=== PATIENT | male | born 1990 | race Two or more races ===

== ENCOUNTER 2020-10-20 17:33 | Outpatient (REF) | payer SELFPAY | END 2020-10-20 17:34 | disposition home or self-care (01) | LOC: HO.LAB 17:33 | PROVIDERS: Visit Provider Internal Medicine | DX: Z20.828 Contact with and (suspected) exposure to other viral communicable diseases (principal) | CPT/HCPCS: C9803; U0003 ==

== ENCOUNTER → 2022-02-26 07:53 | Outpatient (BNVA) | payer SELFPAY | PROVIDERS: Visit Provider Internal Medicine | DX: Z02.79 Encounter for issue of other medical certificate (principal) ==

== ENCOUNTER 2023-02-03 16:22 | Emergency (ER) | payer OTHER, SELFPAY ==
--- NOTE | ~2023-02-03 | XR_ITS ---
EXAMINATION: XR KNEE, RIGHT CLINICAL INFORMATION: Right knee swelling COMPARISON: None available. TECHNIQUE: Four views of the right knee. FINDINGS: Bones and soft tissues are normal aside from the presence of a tiny knee joint effusion. No fracture. Alignment is anatomic. Joint spaces are well maintained. No abnormal soft tissue calcification. XR/XR knee RT 4V IMPRESSION: Small knee joint effusion.
--- NOTE | ~2023-02-03 | US_ITS ---
EXAMINATION: US VENOUS ULTRASOUND WITH DOPPLER LOWER EXTREMITY, RIGHT CLINICAL INFORMATION: Edema COMPARISON: None available. TECHNIQUE: Ultrasound of the deep veins is performed from the hip to the calf with compression sonography and color and pulse Doppler assessment. Spectral analysis with color-flow imaging is performed. FINDINGS: There is normal venous compression and respiratory variation and augmented flow. The visualized common femoral vein, superficial femoral vein, profunda femoral vein, popliteal vein, and the trifurcation region shows no evidence of deep venous thrombosis. There is a area of soft tissue swelling and fluid along the posterolateral aspect of the knee. If the patient's symptoms persist, followup ultrasound in 5 days 7 days might be of value to exclude proximal propagation from a non-visualized calf vein. US/US venous duplex LE RT IMPRESSION: No DVT demonstrated in the right lower extremity. Soft tissue swelling and fluid collection along the lateral aspect of the knee noted.
[2023-02-03 16:36] VITALS: BP 137/82; PULSE 79; RESP 20; TEMP 37.7; O2SAT 100; BMI 25.7
--- NOTE | 2023-02-03 16:37 | ED.LOWEXIN ---
HPI - Extremity Injury (Lower) General Chief Complaint: General Medical <JOSE FRANCISCO White - Last Filed: 02/03/23 16:39> Stated Complaint: right leg mass? <JOSE FRANCISCO White - Last Filed: 02/03/23 16:39> Time Seen by Provider: 02/03/23 17:50 <JOSE FRANCISCO White - Last Filed: 02/03/23 16:39> Source: patient and RN notes reviewed <John Garcia - Last Filed: 02/03/23 18:56> Mode of arrival: ambulatory <John Garcia - Last Filed: 02/03/23 18:56> Limitations: no limitations <John Garcia - Last Filed: 02/03/23 18:56> History of Present Illness HPI Narrative: 32-year-old male presents for evaluation right knee pain and swelling. Patient reports that his symptoms started 5 days ago. 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 Denies any falls or twisting injuries he states that the swelling seems to have been improving over the last 2 days. He states that he sees a ball on the outside of my right knee. he states that 3 days ago he had pain behind his right knee denies any history of blood clots <John Garcia - Last Filed: 02/03/23 18:56> Related Data Allergies/Adverse Reactions: Allergies Allergy/AdvReac Type Severity Reaction Status Date / Time No Known Allergies Allergy Unverified 07/20/20 18:45 <JOSE FRANCISCO White - Last Filed: 02/03/23 16:39> Review of Systems Cardiovascular: Cardiovascular: Denies chest pain and Denies dyspnea <John Garcia - Last Filed: 02/03/23 18:56> Respiratory: Respiratory: Denies dyspnea <John Garcia - Last Filed: 02/03/23 18:56> Musculoskeletal: Musculoskeletal: Reports arthralgias and Reports joint swelling <John Garcia - Last Filed: 02/03/23 18:56> PMFSH Social History Social History: Social History Advance Directives: No Advance Directives Information Provided: No <JOSE FRANCISCO White - Last Filed: 02/03/23 16:39> Physical Exam Vital Signs: Vital Signs: Last Vital Signs Temp 99.8 F 02/03/23 16:36 Pulse 79 02/03/23 16:36 Resp 20 02/03/23 16:36 BP 137/82 02/03/23 16:36 Pulse Ox 100 02/03/23 16:36 O2 Del Method Room Air 02/03/23 16:36 BMI result Body Mass Index 25.7 <JOSE FRANCISCO White - Last Filed: 02/03/23 16:39> Vital Signs: Last Vital Signs Temp 99.8 F 02/03/23 16:36 Pulse 79 02/03/23 16:36 Resp 20 02/03/23 16:36 BP 137/82 02/03/23 16:36 Pulse Ox 100 02/03/23 16:36 O2 Del Method Room Air 02/03/23 16:36 BMI result Body Mass Index 25.7 <John Garcia - Last Filed: 02/03/23 18:56> Const: General: healthy appearing, comfortable, no acute distress, alert and awake <John [place] - Last Filed: 02/03/23 18:56> Nutritional Appearance: well nourished <John O - Last Filed: 02/03/23 18:56> Orientation/consciousness: patient oriented x3 <Johnzuly Alyy - Last Filed: 02/03/23 18:56> HEENT: Head: Yes normocephalic and Yes atraumatic <Johnzuly Alyy - Last Filed: 02/03/23 18:56> Throat: Yes posterior oropharynx normal <Johnzuly Garcia - Last Filed: 02/03/23 18:56> Eyes: Eyelids: Yes eyelids normal <Johnzuly Alyy - Last Filed: 02/03/23 18:56> Conjunctivae: conjunctivae normal <Johnzuly Alyy - Last Filed: 02/03/23 18:56> Sclerae: sclerae normal <Johnzuly Alyy - Last Filed: 02/03/23 18:56> Corneas: corneas normal <Johnzuly Alyy - Last Filed: 02/03/23 18:56> Pupils: Equal, round and reactive pupils present <John O Last Filed: 02/03/23 18:56> EOM: EOMs intact bilaterally < Last Filed: 02/03/23 18:56> Neck: Neck: Yes full ROM < Last Filed: 02/03/23 18:56> Resp: Effort & Inspection: normal respiratory effort, able to speak in complete sentences, no audible wheezes and not labored < Last Filed: 02/03/23 18:56> Auscultation: clear to auscultation bilaterally < Last Filed: 02/03/23 18:56> Cardio: Rate: regular rate < Last Filed: 02/03/23 18:56> Rhythm: regular rhythm < Last Filed: 02/03/23 18:56> GI: Inspection: No distended < Last Filed: 02/03/23 18:56> Palpation (GI): Soft to palpation, not firm, nontender, no guarding and not rigid < Last Filed: 02/03/23 18:56> Auscultation: normoactive bowel sounds < Last Filed: 02/03/23 18:56> Skin: General skin exam: no rashes or lesions noted and elasticity normal < Last Filed: 02/03/23 18:56> Neuro: General: patient oriented x3 < Last Filed: 02/03/23 18:56> Cranial nerves: Yes CN's II-XII intact bilaterally, Yes Equal, round and reactive pupils present and Yes Bilaterally intact EOM present < Last Filed: 02/03/23 18:56> Cognition (Neuro): normal cognition < Last Filed: 02/03/23 18:56> Extrem: Other: patient has a small right knee joint effusion. No laxity with anterior drawer testing, negative valgus / varus strain. no calf tenderness, negative Homans sign <John Garcia - Last Filed: 02/03/23 18:56> Course Course Course Narrative: RME - 32 yo male presents to the ER for evaluation of non-traumtic right knee swelling. Feels like there is a bulge in front of his knee, worse with kneeling. Feels like the bones are grinding with full extension. No redness or warmth. FROM in triage. Plan - XR knee <JOSE FRANCISCO White - Last Filed: 02/03/23 16:39> Medical Decision Making Medical Decision Making MDM Narrative: 32-year-old male presents for evaluation of atraumatic right knee pain and swelling. He reports this started few days ago and has been improving with rest, ice, elevation and NSAIDs. X-ray shows a small joint effusion. 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 Will get an ultrasound to rule out DVT <John Garcia - Last Filed: 02/03/23 18:56> Differential Diagnosis joint effusion Knee sprain Knee bursitis DVT less likely Jules cyst Ruptured Jules cyst <John Garcia - Last Filed: 02/03/23 18:56> Discharge Plan Discharge Clinical Impression: Effusion of right knee <JOSE FRANCISCO White - Last Filed: 02/03/23 16:39> Patient Disposition: Home, Self-Care <JOSE FRANCISCO White - Last Filed: 02/03/23 16:39> Instructions: Swollen Knee Joint (ED) <JOSE FRANCISCO White - Last Filed: 02/03/23 16:39> Additional Instructions: your x-ray shows that you have fluid in your right knee. your ultrasound is negative for blood clots continue to rest, ice elevate compress the extremity follow-up with your primary doctor <JOSE FRANCISCO White - Last Filed: 02/03/23 16:39> Stand Alone Forms: Work/School Release <JOSE FRANCISCO White - Last Filed: 02/03/23 16:39>
== END 2023-02-03 19:13 | disposition home or self-care (01) ==
PROVIDERS: Emergency Provider Emergency Medicine
DX: M25.461 Effusion, right knee (principal); M25.561 Pain in right knee; R60.0 Localized edema
CPT/HCPCS: 73564; 93971; 99282; 99284

== ENCOUNTER 2023-02-10 15:47 | Outpatient (REF) | payer OTHER, SELFPAY ==
[2023-02-10 17:14] LABS: Hematocrit 47.7 % (42.0-52.0); Hemoglobin 15.8 g/dl (14.0-18.0); Mean Corpuscular HGB Conc 33.1 g/dl (31.0-36.0); Mean Corpuscular Hemoglobin 28.3 pg (27.0-33.0); Mean Corpuscular Volume 85.5 fL (80.0-98.0); Mean Platelet Volume 11.5 fL (9.4-12.4); Platelet Count 233 X10*3/uL (160-400); Red Blood Count 5.58 X10*6/uL (4.60-5.80); Red Cell Distribution Width 13.2 % (11.0-16.0); White Blood Count 7.9 X10*3/uL (4.8-10.8)
[2023-02-10 17:46] LABS: Alanine Aminotransferase 17 U/L (0-40); Albumin Level 4.4 g/dL (3.5-5.0); Alkaline Phosphatase 121 U/L (39-117); Anion Gap 13 (12-20); Aspartate Amino Transferase 26 U/L (5-37); Bilirubin Total 0.9 mg/dL (0.0-1.0); Blood Urea Nitrogen 11 mg/dL (9-16); Calcium 9.5 mg/dL (8.4-10.2); Carbon Dioxide 25 mmol/L (22-29); Chloride 108 mmol/L (96-108); Cholesterol 182 mg/dL; Estimated Glomerular Filt Rate > 60; Glucose Fasting 77 mg/dL (60-99); HDL Cholesterol 49 mg/dL; LDL Cholesterol Calculated 119 mg/dl; Potassium 4.2 mmol/L (3.3-5.1); Sodium 142 mmol/L (135-145); Total Protein 6.9 g/dL (6.5-8.0); Triglycerides 71 mg/dL
[2023-02-11 04:46] LABS: CT PCR NOT DETECTED (Not Detect.); NG PCR NOT DETECTED (Not Detect.)
[2023-02-12 04:26] LABS: Syphilis Screen Nonreactive (Nonreactive)
[2023-02-12 04:29] LABS: HIV AB/AG Nonreactive (Nonreactive)
== END 2023-02-10 15:48 | disposition home or self-care (01) ==
LOC: HO.LAB 15:47
PROVIDERS: PCP Physician Assistant; Visit Provider Physician Assistant
DX: Z11.4 Encounter for screening for human immunodeficiency virus [HIV] (principal); Z13.1 Encounter for screening for diabetes mellitus; Z13.220 Encounter for screening for lipoid disorders; Z20.2 Contact with and (suspected) exposure to infections with a predominantly sexual mode of transmission
CPT/HCPCS: 0353U; 80053; 80061; 85027; 86780; 87389

== ENCOUNTER 2023-03-06 10:58 | Outpatient (REF) | payer OTHER, SELFPAY ==
--- NOTE | ~2023-03-06 | XR_ITS ---
EXAMINATION: Knee x-ray CLINICAL INFORMATION: Pain COMPARISON: Previous right knee x-ray February 2023 TECHNIQUE: Standing AP view of both knees, sunrise view of the right knee and lateral and sunrise view of the left knee FINDINGS: Left: Bone alignment is normal. No fracture or dislocation. Joint spaces are normal. There is no joint effusion. Right: Bone alignment is normal. No fracture or dislocation. Normal joint spaces. XR/XR knee RT 1V IMPRESSION: Normal knees.
--- NOTE | ~2023-03-06 | XR_ITS ---
EXAMINATION: Knee x-ray CLINICAL INFORMATION: Pain COMPARISON: Previous right knee x-ray February 2023 TECHNIQUE: Standing AP view of both knees, sunrise view of the right knee and lateral and sunrise view of the left knee FINDINGS: Left: Bone alignment is normal. No fracture or dislocation. Joint spaces are normal. There is no joint effusion. Right: Bone alignment is normal. No fracture or dislocation. Normal joint spaces. XR/XR knee LT 2V IMPRESSION: Normal knees.
--- NOTE | ~2023-03-06 | XR_ITS ---
EXAMINATION: Knee x-ray CLINICAL INFORMATION: Pain COMPARISON: Previous right knee x-ray February 2023 TECHNIQUE: Standing AP view of both knees, sunrise view of the right knee and lateral and sunrise view of the left knee FINDINGS: Left: Bone alignment is normal. No fracture or dislocation. Joint spaces are normal. There is no joint effusion. Right: Bone alignment is normal. No fracture or dislocation. Normal joint spaces. XR/XR knee standing BI IMPRESSION: Normal knees.
== END 2023-03-06 10:59 | disposition home or self-care (01) ==
LOC: HO.HOSX 10:58
PROVIDERS: Visit Provider Physician Assistant
DX: M22.41 Chondromalacia patellae, right knee (principal); M22.42 Chondromalacia patellae, left knee
CPT/HCPCS: 73560; 73565

== ENCOUNTER 2023-05-07 17:00 | Outpatient (RCR) | payer OTHER, SELFPAY ==
--- NOTE | 2023-04-14 17:58 | MHC.PT.EP ---
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 Impairments include pain, decreased range of motion, decreased strength, impaired functional mobility, impaired postural awareness, and altered ambulation mechanics. pt is a excellent candidate for skilled PT due to age, potential remediation of impairments, typical disease/condition progression and prognosis, comorbidities, and motivation. pt would benefit from skilled PT intervention to provide a tailored strengthening and stretching exercise program, functional training, gait training, postural re-training, neuromuscular re-education, modalities as needed for pain, equipment safety demonstration. Frequency and Duration: The patient will be seen 2x/wk for 4 wks Short Term Goals: pt will be I w/ HEP to promote self-management of condition. pt will improve B quad strength to 5/5 to promote ease in sit to stand transfer. [facility] Goals: pt will perform sit<>stand and car transfer w/o UE assist. pt will report a statistically significant improvement in self-reported outcome measure, LEFI, to promote return to PLOF. Treatment Plan: Modalities to reduce pain, spasms and effusion. Manual therapy to restore motion and function. Therapeutic exercise to improve strength and flexibility. Neuromuscular re-education for posture and balance. Therapeutic activities to return to functional activities of daily living. Electronically signed by: Edei Martinez PT, DPT Please sign and return to therapist. Thank you for your referral.
--- NOTE | 2023-05-21 13:37 | MHC.PT.DC ---
[facility] [place] Office [place] Office [place] Office [address] Darcy Banda [address] [facility] [phone] F: [phone] F: [phone] F: [phone] F: [phone] Physical Therapy Discharge Report Diagnosis: chondromalacia B knees (RL) Date of Surgery: N/A Date of Evaluation: 04/14/23 Date of Discharge: 05/21/23 Treatments to Date: 7 Cancellations to Date: 0 No Shows to Date: 0 Discharge Status: Improved Function Independent with HEP Discharge Summary: The patient reported overall feeling much better since starting physical therapy. He is independent with his exercise program. He was shown a way to apply kinesiotape to his knee which he feels is helpful in reducing his pain. He is discharged from this physical therapy plan of care to his home exercise program. Electronically signed by: Edie Martinez PT, DPT Please sign and return to therapist. Thank you for your referral.
== END 2023-05-21 13:38 | disposition home or self-care (01) ==
LOC: HO.PT 17:00
PROVIDERS: PCP Physician Assistant; Visit Provider Physician Assistant
DX: M22.41 Chondromalacia patellae, right knee (principal); M22.42 Chondromalacia patellae, left knee
CPT/HCPCS: 97110; 97112; 97161; 97530

== ENCOUNTER 2023-05-15 08:46 | Outpatient (AMB) | payer OTHER, SELFPAY ==
--- NOTE | 2023-05-15 08:51 | A.OFFPC_ITS ---
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 Patient has a past medical history significant for bilateral knee patellar issue. Has followed up with Orthopedics and recommended physical therapy. Right knee pain has much better and swelling much less. Has family history of early coronary artery disease in his father at the had heart attack at 45. Father was a smoker Vaccines: Up-to-date with COVID vaccine, tetanus vaccine Laboratory Tests 02/10/23 02/10/23 16:04 16:04 RBC 5.58 Creatinine 0.82 Cholesterol 182 LDL Cholesterol, C alc 119 [facility] Surgical History History of cholecystectomy Family History Father Heart attack, Onset Age: 45 Mother No problems noted. 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 Franklin Urena, Cintia Sehr, Robin Fernnadez and colleagues, with an educational mehreen from [employer]. Review of Systems Const Denies body aches, Denies chills, Denies excessive sweating, Denies fatigue, Denies fever(s) and Denies headache(s) Eyes Denies blurry vision ENT Denies dysphagia, Denies vertigo, Denies dizziness, Denies headache(s), Denies hearing loss and Denies tinnitus Card Denies chest pain, Denies chest pain with activity, Denies syncope, Denies irregular heart rhythm and Denies dyspnea Resp Denies chest congestion, Denies cough, Denies hemoptysis, Denies dyspnea and Denies wheezing GI Denies abdominal pain, Denies melena, Denies hematochezia, Denies coffee ground emesis, Denies dysphagia, Denies diarrhea, Denies nausea and Denies vomiting Denies difficulty urinating, Denies dysuria, Denies urinary frequency, Denies urinary hesitancy and Denies urinary urgency Musc Denies arthralgias, Denies limited range of motion, Denies muscle cramps and Denies muscle weakness Skin/Breast Denies rash and Denies skin ulcer Neuro Denies Abnormal speech present, Denies confusion, Denies vertigo, Denies dizziness, Denies syncope, Denies headache(s), Denies memory loss and Denies seizure-like activity Psych Denies anxiety, Denies confusion, Denies depression, Denies memory loss, Denies panic attacks and Denies paranoia Endo Denies excessive sweating, Denies fatigue, Denies flushing, Denies polydipsia and Denies polyuria Aller/Immun Denies wheezing Physical exam (Primary Care) Vital Signs: Last Vital Signs Pulse 72 05/15/23 08:52 BP 110/70 05/15/23 08:52 Pulse Ox 98 05/15/23 08:52 Oxygen Delivery Method Room Air 05/15/23 08:52 BMI result Body Mass Index 24.8 Tobacco/Smoking Status: Tobacco use Status Tobacco use date assessed 05/15/23 05/15/23 08:56 Patient Tobacco Use Status Never used Tobacco 05/15/23 08:56 e-Cigarette/Vaping Use Never Used 05/15/23 08:56 Const General: cooperative, comfortable, no acute distress, alert and awake; No confusion Orientation/consciousness: oriented to person, oriented to place, patient oriented x3 and No confusion [facility] Head: Yes normocephalic Ears: external ears normal and TM's normal bilaterally Face and sinus: No sinus tenderness Mouth: Normal oral and palatal mucosa present and tongue normal Teeth and gingiva: dentition normal and gingiva normal Throat: Yes posterior oropharynx normal, Yes tonsils normal and Yes uvula midline Eyes Conjunctivae: conjunctivae normal Sclerae: sclerae normal Pupils: Equal, round and reactive pupils present EOM: EOMs intact bilaterally Direct Ophthalmoscopy: No no photophobia Neck Neck: Yes no lymphadenopathy, No tender and Yes no JVD Thyroid: Thyroid normal Carotids: no bruits Chest Chest palpation & inspection: no tenderness Resp Effort & Inspection: normal respiratory effort, no audible wheezes, not labored and no stridor Auscultation: no crackles, no rales, no rhonchi and no wheezes Cardio Jugular venous distension: no JVD Rate: regular rate, not bradycardic and not tachycardic Rhythm: regular rhythm Bruits: no carotid bruits Peripheral pulses: Peripheral pulses 2+ throughout GI Inspection: Yes normal to inspection, No abdominal wall ecchymosis and No visible herniation Palpation (GI): Soft to palpation, nontender, no guarding, not rigid and No hepatosplenomegaly present Auscultation: normoactive bowel sounds General: Yes no CVA tenderness Back/Spine/Pelvis Back: no CVA tenderness and No back tenderness Cervical Spine: cervical ROM normal Thoracic/Lumbar Spine: thoracic and lumbar spine normal to inspection, straight leg raise negative bilaterally, No thoraco-lumbar ROM limited and No lumbar spinal tenderness Skin Lesions: no lesions Rashes: no rashes Wounds: no wounds Neuro General: oriented to person, oriented to place, patient oriented x3, CN's II-XI intact bilaterally and No confusion Cranial nerves: Yes Equal, round and reactive pupils present and Yes Normal accommodation reflex present Cognition (Neuro): normal cognition Speech: No Abnormal speech present Gait exam (Neuro): Normal gait present Motor exam (neuro): 5/5 motor strength present throughout Extrem Right upper extremity: full ROM; no cyanosis Left upper extremity: full ROM; no cyanosis Right lower extremity: no edema Left lower extremity: no edema Psych Appearance: grossly normal Mental Status: mental status grossly normal Affect: normal affect Attitude: cooperative Thought process: Normal thought process present Assessment and Plan Assessment & Plan (1) Annual physical exam: Code(s): Z00.00 - Encounter for general adult medical examination without abnormal findings (2) Chondromalacia of both patellae: Code(s): M22.41 - Chondromalacia patellae, right knee; M22.42 - Chondromalacia patellae, left knee Plan: Right knee pain and swelling getting much better with exercises. Does use Advil on a p.r.n. basis. Has follow-up with physical therapy and orthopedics (3) Screening for diabetes mellitus (DM): Code(s): Z13.1 - Encounter for screening for diabetes mellitus (4) Family history of early CAD: Code(s): Z82.49 - Family history of ischemic heart disease and other diseases of the circulatory system Plan: Patient's father with heart attack at age 45. Father was a smoker. Most recent lipid panel showing appropriate total cholesterol and LDL. Orders: Orders Comprehensive [place]. Panel Fast 364 Days Z13.1 - Encounter for screening for diabetes mellitus Coding Level of Care Code Est Pt Prev Care [id number]([id number]) Diagnoses Annual physical exam Z00.00 Chondromalacia of both patellae M22.41; M22.42 Screening for diabetes mellitus (DM) Z13.1 Family history of early CAD Z82.49
[2023-05-15 08:52] VITALS: BP 110/70; PULSE 72; O2SAT 98; BMI 24.8
== END 2023-05-15 09:29 | disposition home or self-care (01) ==
PROVIDERS: PCP Physician Assistant; Visit Provider Physician Assistant
DX: Z00.00 Encounter for general adult medical examination without abnormal findings (principal); Z82.49 Family history of ischemic heart disease and other diseases of the circulatory system; M22.41 Chondromalacia patellae, right knee; M22.42 Chondromalacia patellae, left knee; Z13.1 Encounter for screening for diabetes mellitus
CPT/HCPCS: 99395

== ENCOUNTER 2024-07-29 14:23 | Outpatient (AMB) | payer OTHER, SELFPAY ==
--- NOTE | 2024-07-29 14:34 | MHC.PC.OV ---
Vital Signs 07/29/24 14:35 Height 6 ft Weight 192 lb BMI 26.0 BP 130/70 Blood Pressure Location Lt brachial Position Sitting Pulse 8 L Pulse Source Pulse Oximeter Pulse Oximetry (%) 97 Oxygen Delivery Method Room Air Intake Visit Reasons: annual exam Intake Note: Patient is here today for a physical. 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 Costuming Required: No Accompanied by: Self / Same As Patient Allergies No Known Allergies Allergy (Verified 07/29/24 14:56) Medication List - Last Reconciled 07/29/24 by Fabián Castillo PA-C No Known Home Meds Tobacco use date assessed: 07/29/24 Dental Screening Dental Screen Date: 07/29/24 Did you have a dental visit in the last 12 months?: Yes Did you have a dental problem in the last 6 months where you did not have access to dental care?: No Was dental information given to patient?: Patient has dentist HPI annual exam HPI Details Patient is a 33-year-old male here today for routine annual physical. Patient has a past medical history significant for bilateral knee patellar issue. Was no physical complaints today. Vaccines: Up-to-date with COVID vaccine, tetanus vaccinet, declines flu vaccine. Laboratory Tests 02/10/23 02/10/23 16:04 16:04 RBC 5.58 Creatinine 0.82 Cholesterol 182 LDL Cholesterol, C alc 119 PFSH Surgical History History of cholecystectomy Family History Father Heart attack, Onset Age: 45 Mother No problems noted. 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 1. Little interest or pleasure in doing things: several days 2. Feeling down, depressed, or hopeless: not at all 3. Trouble falling or staying asleep, or sleeping too much: several days 4. Feeling tired or having little energy: several days 5. Poor appetite or overeating: not at all 6. Feeling bad about yourself - or that you are a failure or have let yourself or your family down: not at all 7. Trouble concentrating on things, such as reading the newspaper or watching television: not at all 8. Moving or speaking so slowly that other people could have noticed. Or the opposite - being so fidgety or restless that you have been moving around a lot more than usual: not at all 9. Thoughts that you would be better off or of hurting yourself in some way: not at all Total score: 3 Depression Screening Interpretation: Positive Depression Screening Follow-up: Existing condition Depression Screening Done: Yes 15720 - PHQ-9 Billing: Yes Source: Developed by Drs. Franklin Urena, Cintia Sher, Robin Fernandez and colleagues, with an educational mehreen from [employer]. Thrive Questionnaire Date Thrive assessed: 07/29/24 I am a: Patient What is your living situation today?: I have a steady place to live Within the past 12 months, did the food you bought not last and you didn't have the money to get more?: Never true Within the past 12 months, did you worry whether your food would run out before you got money to buy more?: Never true Do you have trouble paying for medicines?: No Do you have trouble getting transportation to medical appointments?: No Do you have trouble paying your heating and electricity bill?: No Do you have trouble taking care of your child, family member or friend?: No Do you have trouble with day-to-day activities such as bathing, preparing meals, shopping, managing finances, etc.?: No Are you currently unemployed and looking for a job?: No Are you interested in more education?: No Please select the resources that you would like help with: None Currently or been in a relationship where the following occur: No concerns reported THRIVE Score: 0 AUDIT C Alcohol Use Questionnaire (AUDIT-C) 1. How often do you have a drink containing alcohol?: Never 3. How often do you have six or more drinks on one occasion?: Never Total Score: 0 ANI-7 AMB Questionnaire ANI-7 Date ANI - 7 assessed: 07/29/24 Feeling nervous, anxious, or on edge: 0 = Not at all Not being able to stop or control worryin = Not at all Worrying too much about different things: 0 = Not at all Trouble relaxin = Not at all Being so restless that it is hard to sit still: 0 = Not at all Becoming easily annoyed or irritable: 1 = Several days Feeling afraid as if something awful might happen: 0 = Not at all Total ANI-7 score (0-4 normal; 5-9 mild; 10-14 moderate; 15-21 severe): 1 Source: Developed by Drs. Franklin Urena, Cintia Sher, Robin Fernandez and colleagues, with an educational mehreen from [employer]. ANI-7 Assessment Billing ANI-7 Assessment Tool: ANI-7 Assessment 34340 Review of Systems Const Denies body aches, Denies chills, Denies excessive sweating, Denies fatigue, Denies fever(s) and Denies headache(s) Eyes Denies blurry vision ENT Denies dysphagia, Denies vertigo, Denies dizziness, Denies headache(s), Denies hearing loss and Denies tinnitus Card Denies chest pain, Denies chest pain with activity, Denies syncope, Denies irregular heart rhythm and Denies dyspnea Resp Denies chest congestion, Denies cough, Denies hemoptysis, Denies dyspnea and Denies wheezing GI Denies abdominal pain, Denies melena, Denies hematochezia, Denies coffee ground emesis, Denies dysphagia, Denies diarrhea, Denies nausea and Denies vomiting Denies difficulty urinating, Denies dysuria, Denies urinary frequency, Denies urinary hesitancy and Denies urinary urgency Musc Denies arthralgias, Denies limited range of motion, Denies muscle cramps and Denies muscle weakness Skin/Breast Denies rash and Denies skin ulcer Neuro Denies Abnormal speech present, Denies confusion, Denies vertigo, Denies dizziness, Denies syncope, Denies headache(s), Denies memory loss and Denies seizure-like activity Psych Denies anxiety, Denies confusion, Denies depression, Denies memory loss, Denies panic attacks and Denies paranoia Endo Denies excessive sweating, Denies fatigue, Denies flushing, Denies polydipsia and Denies polyuria Aller/Immun Denies wheezing Physical exam (Primary Care) Vital Signs: Last Vital Signs Pulse 8 L 07/29/24 14:35 BP 130/70 07/29/24 14:35 Pulse Ox 97 07/29/24 14:35 Oxygen Delivery Method Room Air 07/29/24 14:35 BMI result Body Mass Index 26.0 Tobacco/Smoking Status: Tobacco use Status Tobacco use date assessed 07/29/24 07/29/24 14:41 Patient Tobacco Use Status Never used Tobacco 07/29/24 14:41 e-Cigarette/Vaping Use Never Used 07/29/24 14:41 PHQ-9: PHQ-9 Score PHQ-9: Total score 3 07/29/24 14:41 Depression Screening Interpretation: Positive Depression Screening Follow-up: Existing condition Thrive Assessment: Date of Thrive Assessment Date Thrive assessed 07/29/24 07/29/24 14:41 Currently or been in a relationship where the following occur: No concerns reported Const General: cooperative, comfortable, no acute distress, alert and awake; No confusion Orientation/consciousness: oriented to person, oriented to place, patient oriented x3 and No confusion HENMT Head: Yes normocephalic Ears: external ears normal and TM's normal bilaterally Face and sinus: No sinus tenderness Mouth: Normal oral and palatal mucosa present and tongue normal Teeth and gingiva: dentition normal and gingiva normal Throat: Yes posterior oropharynx normal, Yes tonsils normal and Yes uvula midline Eyes Conjunctivae: conjunctivae normal Sclerae: sclerae normal Pupils: Equal, round and reactive pupils present EOM: EOMs intact bilaterally Direct Ophthalmoscopy: No no photophobia Neck Neck: Yes no lymphadenopathy, No tender and Yes no JVD Thyroid: Thyroid normal Carotids: no bruits Chest Chest palpation & inspection: no tenderness Resp Effort & Inspection: normal respiratory effort, no audible wheezes, not labored and no stridor Auscultation: no crackles, no rales, no rhonchi and no wheezes Cardio Jugular venous distension: no JVD Rate: regular rate, not bradycardic and not tachycardic Rhythm: regular rhythm Bruits: no carotid bruits Peripheral pulses: Peripheral pulses 2+ throughout GI Inspection: Yes normal to inspection, No abdominal wall ecchymosis and No visible herniation Palpation (GI): Soft to palpation, nontender, no guarding, not rigid and No hepatosplenomegaly present Auscultation: normoactive bowel sounds General: Yes no CVA tenderness Back/Spine/Pelvis Back: no CVA tenderness and No back tenderness Cervical Spine: cervical ROM normal Thoracic/Lumbar Spine: thoracic and lumbar spine normal to inspection, straight leg raise negative bilaterally, No thoraco-lumbar ROM limited and No lumbar spinal tenderness Skin Lesions: no lesions Rashes: no rashes Wounds: no wounds Neuro General: oriented to person, oriented to place, patient oriented x3, CN's II-XI intact bilaterally and No confusion Cranial nerves: Yes Equal, round and reactive pupils present and Yes Normal accommodation reflex present Cognition (Neuro): normal cognition Speech: No Abnormal speech present Gait exam (Neuro): Normal gait present Motor exam (neuro): 5/5 motor strength present throughout Extrem Right upper extremity: full ROM; no cyanosis Left upper extremity: full ROM; no cyanosis Right lower extremity: no edema Left lower extremity: no edema Psych Appearance: grossly normal Mental Status: mental status grossly normal Affect: normal affect Attitude: cooperative Thought process: Normal thought process present Assessment and Plan Assessment & Plan (1) Annual physical exam: Code(s): Z00.00 - Encounter for general adult medical examination without abnormal findings (2) Screening for diabetes mellitus (DM): Code(s): Z13.1 - Encounter for screening for diabetes mellitus Orders: Orders Comprehensive [place]. Panel Fast Today Z13.1 - Encounter for screening for diabetes mellitus Complete Blood Count no Diff Today Z13.1 - Encounter for screening for diabetes mellitus Coding Level of Care Code Est Pt Prev Care 18-39y(25057) Diagnoses Annual physical exam Z00.00 Screening for diabetes mellitus (DM) Z13.1 Additional Codes ANI-7 Assessment Billing - ANI-7 Assessment Tool: ANI-7 Assessment 57422 ([id number])
[2024-07-29 14:35] VITALS: BP 130/70; PULSE 8; O2SAT 97; BMI 26.0
== END 2024-07-29 15:15 | disposition home or self-care (01) ==
PROVIDERS: PCP Physician Assistant; Visit Provider Physician Assistant
DX: Z00.00 Encounter for general adult medical examination without abnormal findings (principal); Z13.1 Encounter for screening for diabetes mellitus

== ENCOUNTER → 2024-07-29 14:23 | Outpatient (BNVA) | payer OTHER, SELFPAY | PROVIDERS: PCP Physician Assistant; Visit Provider Physician Assistant | DX: Z00.00 Encounter for general adult medical examination without abnormal findings (principal) | CPT/HCPCS: 96127 ==

== ENCOUNTER 2025-08-03 14:46 | Outpatient (AMB) | payer OTHER, SELFPAY ==
[2025-08-03 14:49] VITALS: BP 138/90; PULSE 69; TEMP 36.5; O2SAT 97; BMI 25.8
--- NOTE | 2025-08-03 14:49 | MHC.PC.OV ---
Vital Signs 08/03/25 14:49 08/03/25 15:12 Height 6 ft Weight 190 lb 2 oz BMI 25.8 BP 138/90 H 120/88 Blood Pressure Location Lt brachial Position Sitting Pulse 69 Pulse Source Pulse Oximeter Temp 97.7 F Temp Source Temporal Artery Scan Pulse Oximetry (%) 97 Oxygen Delivery Method Room Air Intake Visit Reasons: Annual Exam Allergies No Known Allergies Allergy (Verified 08/03/25 14:54) Medication List - Last Reconciled 08/03/25 by Fabián Castillo PA-C No Known Home Meds Tobacco use date assessed: 08/03/25 Dental Screening Dental Screen Date: 08/03/25 Did you have a dental visit in the last 12 months?: No Did you have a dental problem in the last 6 months where you did not have access to dental care?: No Was dental information given to patient?: No HPI Annual Exam HPI Details Patient is a 34-year-old male here today for routine annual physical. Patient has a past medical history significant for bilateral knee patellar issue. Concern--> The patient reports a history of onychomycosis affecting the toenail, which began after a toe injury a couple of years ago. He has attempted [id number] treatments with limited success and is considering prescription options. The patient is concerned about the potential liver effects of oral antifungal medications and prefers topical treatments. Noted slightly elevated blood pressure reading today in office, he reports he has been a bit stress today and has been rushing. Vaccines: Up-to-date with COVID vaccine, tetanus vaccine, declines flu vaccine. Laboratory Tests 02/10/23 02/10/23 16:04 16:04 RBC 5.58 Creatinine 0.82 Cholesterol 182 LDL Cholesterol, C alc 119 PFSH Surgical History History of cholecystectomy Family History Father Heart attack, Onset Age: 45 Mother No problems noted. 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 1. Little interest or pleasure in doing things: several days 2. Feeling down, depressed, or hopeless: not at all 3. Trouble falling or staying asleep, or sleeping too much: several days 4. Feeling tired or having little energy: several days 5. Poor appetite or overeating: not at all 6. Feeling bad about yourself - or that you are a failure or have let yourself or your family down: not at all 7. Trouble concentrating on things, such as reading the newspaper or watching television: not at all 8. Moving or speaking so slowly that other people could have noticed. Or the opposite - being so fidgety or restless that you have been moving around a lot more than usual: not at all 9. Thoughts that you would be better off or of hurting yourself in some way: not at all Total score: 3 Depression Screening Interpretation: Positive Depression Screening Follow-up: Existing condition Depression Screening Done: Yes 10154 - PHQ-9 Billing: Yes Source: Developed by Drs. Franklin Urena, Cintia Sher, Robin Fernandez and colleagues, with an educational mehreen from [employer]. Thrive Questionnaire Date Thrive assessed: 08/03/25 I am a: Patient What is your living situation today?: I have a steady place to live Within the past 12 months, did the food you bought not last and you didn't have the money to get more?: Never true Within the past 12 months, did you worry whether your food would run out before you got money to buy more?: Never true Do you have trouble paying for medicines?: No Do you have trouble getting transportation to medical appointments?: No Do you have trouble paying your heating and electricity bill?: No Do you have trouble taking care of your child, family member or friend?: No Do you have trouble with day-to-day activities such as bathing, preparing meals, shopping, managing finances, etc.?: No Are you currently unemployed and looking for a job?: No Are you interested in more education?: No Please select the resources that you would like help with: None Currently or been in a relationship where the following occur: No concerns reported THRIVE Score: 0 AUDIT C Alcohol Use Questionnaire (AUDIT-C) 1. How often do you have a drink containing alcohol?: Never 3. How often do you have six or more drinks on one occasion?: Never Total Score: 0 ANI-7 AMB Questionnaire ANI-7 Date ANI - 7 assessed: 08/03/25 Feeling nervous, anxious, or on edge: 0 = Not at all Not being able to stop or control worryin = Not at all Worrying too much about different things: 0 = Not at all Trouble relaxin = Not at all Being so restless that it is hard to sit still: 0 = Not at all Becoming easily annoyed or irritable: 1 = Several days Feeling afraid as if something awful might happen: 0 = Not at all Total ANI-7 score (0-4 normal; 5-9 mild; 10-14 moderate; 15-21 severe): 1 Source: Developed by Drs. Franklin Urena, Cintia Sher, Robin Fernandez and colleagues, with an educational mehreen from [employer]. ANI-7 Assessment Billing ANI-7 Assessment Tool: ANI-7 Assessment 64647 Review of Systems Const Denies body aches, Denies chills, Denies excessive sweating, Denies fatigue, Denies fever(s) and Denies headache(s) Eyes Denies blurry vision ENT Denies dysphagia, Denies vertigo, Denies dizziness, Denies headache(s), Denies hearing loss and Denies tinnitus Card Denies chest pain, Denies chest pain with activity, Denies syncope, Denies irregular heart rhythm and Denies dyspnea Resp Denies chest congestion, Denies cough, Denies hemoptysis, Denies dyspnea and Denies wheezing GI Denies abdominal pain, Denies melena, Denies hematochezia, Denies coffee ground emesis, Denies dysphagia, Denies diarrhea, Denies nausea and Denies vomiting Denies difficulty urinating, Denies dysuria, Denies urinary frequency, Denies urinary hesitancy and Denies urinary urgency Musc Denies arthralgias, Denies limited range of motion, Denies muscle cramps and Denies muscle weakness Skin/Breast Denies rash and Denies skin ulcer Neuro Denies Abnormal speech present, Denies confusion, Denies vertigo, Denies dizziness, Denies syncope, Denies headache(s), Denies memory loss and Denies seizure-like activity Psych Denies anxiety, Denies confusion, Denies depression, Denies memory loss, Denies panic attacks and Denies paranoia Endo Denies excessive sweating, Denies fatigue, Denies flushing, Denies polydipsia and Denies polyuria Aller/Immun Denies wheezing Physical exam (Primary Care) Vital Signs: Last Vital Signs Temp 97.7 F 08/03/25 14:49 Pulse 69 08/03/25 14:49 BP 138/90 H 08/03/25 14:49 Pulse Ox 97 08/03/25 14:49 Oxygen Delivery Method Room Air 08/03/25 14:49 BMI result Body Mass Index 25.8 Tobacco/Smoking Status: Tobacco use Status Tobacco use date assessed 08/03/25 08/03/25 14:52 Patient Tobacco Use Status Never used Tobacco 08/03/25 14:52 e-Cigarette/Vaping Use Never Used 08/03/25 14:52 PHQ-9: PHQ-9 Score PHQ-9: Total score 3 08/03/25 14:52 Depression Screening Interpretation: Positive Depression Screening Follow-up: Existing condition Thrive Assessment: Date of Thrive Assessment Date Thrive assessed 08/03/25 08/03/25 14:52 Currently or been in a relationship where the following occur: No concerns reported Const General: cooperative, comfortable, no acute distress, alert and awake; No confusion Orientation/consciousness: oriented to person, oriented to place, patient oriented x3 and No confusion HENMT Head: Yes normocephalic Ears: external ears normal and TM's normal bilaterally Face and sinus: No sinus tenderness Mouth: Normal oral and palatal mucosa present and tongue normal Teeth and gingiva: dentition normal and gingiva normal Throat: Yes posterior oropharynx normal, Yes tonsils normal and Yes uvula midline Eyes Conjunctivae: conjunctivae normal Sclerae: sclerae normal Pupils: Equal, round and reactive pupils present EOM: EOMs intact bilaterally Direct Ophthalmoscopy: No no photophobia Neck Neck: Yes no lymphadenopathy, No tender and Yes no JVD Thyroid: Thyroid normal Carotids: no bruits Chest Chest palpation & inspection: no tenderness Resp Effort & Inspection: normal respiratory effort, no audible wheezes, not labored and no stridor Auscultation: no crackles, no rales, no rhonchi and no wheezes Cardio Jugular venous distension: no JVD Rate: regular rate, not bradycardic and not tachycardic Rhythm: regular rhythm Bruits: no carotid bruits Peripheral pulses: Peripheral pulses 2+ throughout GI Inspection: Yes normal to inspection, No abdominal wall ecchymosis and No visible herniation Palpation (GI): Soft to palpation, nontender, no guarding, not rigid and No hepatosplenomegaly present Auscultation: normoactive bowel sounds General: Yes no CVA tenderness Back/Spine/Pelvis Back: no CVA tenderness and No back tenderness Cervical Spine: cervical ROM normal Thoracic/Lumbar Spine: thoracic and lumbar spine normal to inspection, straight leg raise negative bilaterally, No thoraco-lumbar ROM limited and No lumbar spinal tenderness Skin Lesions: no lesions Rashes: no rashes Wounds: no wounds Neuro General: oriented to person, oriented to place, patient oriented x3, CN's II-XI intact bilaterally and No confusion Cranial nerves: Yes Equal, round and reactive pupils present and Yes Normal accommodation reflex present Cognition (Neuro): normal cognition Speech: No Abnormal speech present Gait exam (Neuro): Normal gait present Motor exam (neuro): 5/5 motor strength present throughout Extrem Right upper extremity: full ROM; no cyanosis Left upper extremity: full ROM; no cyanosis Right lower extremity: no edema Left lower extremity: no edema Psych Appearance: grossly normal Mental Status: mental status grossly normal Affect: normal affect Attitude: cooperative Thought process: Normal thought process present Coding Level of Care Code Est Pt Prev Care 18-39y(20580) Diagnoses Annual physical exam Z00. Rhonda onychomycosis B37.2 Additional Codes ANI-7 Assessment Billing - ANI-7 Assessment Tool: ANI-7 Assessment 93775 ([id number]) PHQ-9 - 79646 - PHQ-9 Billing: Yes ([id number]) Assessment & Plan Assessment & Plan (1) Annual physical exam: Code(s): Z00.00 - Encounter for general adult medical examination without abnormal findings Category: Medical Plan: as per HPI (2) Rhonda onychomycosis: Code(s): B37.2 - Candidiasis of skin and nail Category: Medical Plan: For the management of onychomycosis, the patient was advised on the use of topical antifungal treatments as a preferred option due to concerns about the potential hepatic side effects of oral antifungal medications. The patient was informed about the importance of monitoring liver function if oral medications are considered in the future. Orders: Orders Lipid Panel Today Z82.49 - Family history of ischemic heart disease and other diseases of the circulatory system Comprehensive [place]. Panel Fast Today Z13.1 - Encounter for screening for diabetes mellitus Complete Blood Count no Diff Today Z13.1 - Encounter for screening for diabetes mellitus Medications: New ciclopirox 0.77% 1 appl topical BID 30 grams 1RF 4 weeks B35.3 - Tinea pedis, B37.2 - Candidiasis of skin and nail
[2025-08-03 15:12] VITALS: BP 120/88
== END 2025-08-03 15:14 | disposition home or self-care (01) ==
PROVIDERS: PCP Physician Assistant; Visit Provider Physician Assistant
DX: Z00.00 Encounter for general adult medical examination without abnormal findings (principal); B37.2 Candidiasis of skin and nail

== ENCOUNTER → 2025-08-03 14:46 | Outpatient (BNVA) | payer OTHER, SELFPAY | PROVIDERS: PCP Physician Assistant; Visit Provider Physician Assistant | DX: Z00.00 Encounter for general adult medical examination without abnormal findings (principal); B37.2 Candidiasis of skin and nail; B35.3 Tinea pedis | CPT/HCPCS: 96127 ==

== ENCOUNTER 2025-08-06 08:14 | Outpatient (REF) | payer OTHER, SELFPAY ==
[2025-08-06 09:22] LABS: Hematocrit 48.7 % (42.0-52.0); Hemoglobin 16.3 g/dl (14.0-18.0); Mean Corpuscular HGB Conc 33.5 g/dl (31.0-36.0); Mean Corpuscular Hemoglobin 28.5 pg (27.0-33.0); Mean Corpuscular Volume 85.3 fL (80.0-98.0); NRBC Abs Auto 0.000 X10*3/uL (0.0-0.012); NRBC Pct Auto 0.0 /100WBC (0.0-0.2); Platelet Count 261 X10*3/uL (160-400); Red Blood Count 5.71 X10*6/uL (4.60-5.80); White Blood Count 6.3 X10*3/uL (4.8-10.8)
[2025-08-06 10:10] LABS: Alanine Aminotransferase 26 U/L (0-40); Albumin Level 4.5 g/dL (3.5-5.0); Alkaline Phosphatase 104 U/L (39-117); Anion Gap 11 (12-20); Aspartate Amino Transferase 39 U/L (5-37); Blood Urea Nitrogen 18 mg/dL (9-16); Calcium 9.4 mg/dL (8.4-10.2); Carbon Dioxide 27 mmol/L (22-29); Chloride 106 mmol/L (96-108); Cholesterol 209 mg/dL (<200); Estimated Glomerular Filt Rate > 60; HDL Cholesterol 66 mg/dL (>40); Potassium 4.7 mmol/L (3.3-5.1); Sodium 139 mmol/L (135-145); Total Protein 7.2 g/dL (6.5-8.0); Triglycerides 57 mg/dL (<150)
== END 2025-08-06 08:15 | disposition home or self-care (01) ==
LOC: HO.LAB 08:14
PROVIDERS: PCP Physician Assistant; Visit Provider Physician Assistant
DX: Z13.1 Encounter for screening for diabetes mellitus (principal); Z82.49 Family history of ischemic heart disease and other diseases of the circulatory system; Z13.6 Encounter for screening for cardiovascular disorders
CPT/HCPCS: 36415; 80053; 80061; 85027